=== PATIENT | female | born 1985 | race Caucasian/White ===

== ENCOUNTER → 2016-12-29 | Outpatient (CLI) | payer OTHER ==
[2016-12-29 08:52] LABS: CH 29.2; HCT 39.3 % (34.0-46.0); HDW 2.17; HGB 13.2 gm/dL (11.4-16.0); MCH 29.8 pg (25.0-35.0); MCHC 33.5 g/dL (31.0-37.0); MCV 88.8 fL (80.0-100.0); Mean Platelet Volume 6.7; RBC 4.42 m/uL (3.80-5.40); RDW 12.6 % (11.5-15.5); WBC 7.4 k/uL (3.8-10.6)
[2016-12-29 09:16] LABS: Glucose 89 mg/dL (74-99); Non-African American GFR(MDRD) >60 (>60 ml/min/1.73 sqM)
[2016-12-29 09:40] LABS: Hepatitis B Surface Ag Index 0.05
[2016-12-29 15:50] LABS: Treponemal Ab Non-Reactive (Non-Reactive)
== END | disposition home or self-care (01) ==
LOC: LABWHC1 08:17
PROVIDERS: ATTEND Obstetrics & Gynecology
DX: Z34.81 Encounter for supervision of other normal pregnancy, first trimester (principal); R53.83 Other fatigue
CPT/HCPCS: 36415; 82565; 82947; 85027; 86762; 86780; 86850; 86900; 86901; 87340; 87390

== ENCOUNTER 2017-01-23 05:56 | Day surgery (SDC) | payer OTHER ==
[2017-01-22 14:32] VITALS: BMI 33.7
--- NOTE | 2017-01-22 17:46 | P.HPOB ---
History of Present Illness H&P Date: 01/22/17 Chief Complaint: Missed . This patient is a pleasant 31-year-old 2 para 1 female estimated gestational age approximately 8 weeks who presented for a routine visit was found to have no cardiac activity. Patient had a previous ultrasound done at 7 weeks which showed a viable . Ultrasound done today demonstrated a 8 week intrauterine with no cardiac activity consistent with a missed . I did discuss options with the patient including expectant management versus D&C. Patient is requesting D&C at this time. Review of Systems Constitutional: Denies chills, Denies fever Ears, nose, mouth and throat: Denies headache, Denies sore throat Cardiovascular: Denies chest pain, Denies shortness of breath Respiratory: Denies cough Genitourinary: Reports as per HPI, Reports Menstruation: Reports amenorrhea Past Medical History Past Medical History: No Reported History, Osteoarthritis (OA) History of Any Multi-Drug Resistant Organisms: None Reported Additional Past Surgical History / Comment(s): Patient has a history of wrist surgery with a ganglion cyst removed. Past Anesthesia/Blood Transfusion Reactions: No Reported Reaction Past Psychological History: No Psychological Hx Reported Smoking Status: Never smoker Past Alcohol Use History: None Reported Past Drug Use History: None Reported - Past Family History Sister(s) Family Medical History: Cancer Additional Family Medical History / Comment(s): melanoma Father Family Medical History: Diabetes Mellitus Medications and Allergies Home Medications Medication Instructions Recorded Confirmed Type Bnj-Sflh-Uxzfo Acid 1 tab PO DAILY 10/15/13 01/22/17 History [-U Capsule (formulary)] Allergies Allergy/AdvReac Type Severity Reaction Status Date / Time No Known Allergies Allergy Verified 01/22/17 14:25 Exam - Vital Signs Vital signs: Intake and Output 01/22/17 01/22/17 01/22/17 06:59 14:59 22:59 Other: Weight 103.873 kg Patient Weight 01/23/17 06:59 Weight 103.873 kg - OBG Physical Exam Abdomen: bowel sounds normal, no diffuse tenderness, no bruit present, no guarding noted, no hepatomegaly, no splenomegaly, no mass Vulva: both: normal Vagina: normal moisture Uterus: enlarged (8 weeks size.) Results Ultrasound in my office today shows a approximately 8 week intrauterine with no cardiac activity. There has been little change from her previous ultrasound 4 weeks ago. Assessment and Plan (1) Missed Narrative/Plan: This is a pleasant 31-year-old 2 para 1 female 8 weeks gestation with missed . Patient is requesting suction D&C at this time. Patient and I and her have discussed the surgery and risks including risks of infection, bleeding, possible uterine perforation. All the patient's questions are answered and a written consent is obtained. Status: Acute
[~2017-01-23 05:56] MED LIST: DEXAMETHASONE SOD PHOSPHATE 10 MG/ML 1 ML VIAL IV ONE; HYDROmorphone 1 MG/ML 1 ML SYRINGE IVP PRN; LACTATED RINGERS 1,000 ML IV SCH; LIDOCAINE 1% 20 ML VIAL (10MG/ML) FOR IV START INTRADERMA PRN; ONDANSETRON 4 MG/2 ML VIAL IVP ONE; Pre Op ABX Message 1 EACH MISC MISCELLANE ONE; SCOPOLAMINE 1.5MG/72HR PATCH TRANSDERM ONE
[2017-01-23] MEDS ORDERED: LACTATED RINGERS 1,000 ML IV ONE (06:14)
[2017-01-23] MEDS ORDERED: MIDAZOLAM 2 MG/2 ML VIAL ONE (06:52)
[2017-01-23] MEDS ORDERED: fentaNYL (PF) 50 MCG/ML 2 ML AMP ONE (06:52)
[2017-01-23] MEDS ORDERED: LIDOCAINE 1% INJ 10MG/ML (20 ML MDV) ONE (06:52)
[2017-01-23] MEDS ORDERED: PROPOFOL 10 MG/ML 20 ML VIAL IV ONE (06:52)
[2017-01-23] MEDS ORDERED: KETOROLAC 30 MG/ML 1 ML VIAL ONE (06:52)
[2017-01-23 07:20] VITALS: TEMP 98.2
[2017-01-23 08:09] VITALS: RESP 20
[2017-01-23 09:14] VITALS: BP 111/66; PULSE 76
--- NOTE | 2017-01-23 10:36 | P.OP ---
Date of Procedure: 01/23/17 Preoperative Diagnosis: Missed 8 weeks. Postoperative Diagnosis: Same Procedure(s) Performed: Suction D&C Implants: Anesthesia: MAC Surgeon: López Horvath Estimated Blood Loss (ml): 400 Urine output (ml): 10 Pathology: other (Uterine contents) Condition: stable Disposition: PACU Indications for Procedure: Please see dictated H&P for intimate details of this patient's admission. Brief summary this is a pleasant 31-year-old 2 para 1 female estimated gestational age 12 weeks by dates 8 weeks by ultrasound who had a previous viable ultrasound at approximately 7 weeks however presented to my office yesterday for routine OB visit was found to have no cardiac activity consistent with a missed . Patient and I discussed options for treatment including expectant management versus D&C she requested D&C at this time. We discussed the surgery and risks including risks of infection, bleeding , possible uterine perforation. All the patient's questions are answered and a written consent is obtained. Operative Findings: Uterine contents were consistent with products of conception. Description of Procedure: This patient is taken to the operating room where she is laid in the supine position. She subsequent undergoes general mask anesthesia without incident. With an adequate level of anesthesia she's placed in the dorsal lithotomy position. She has a vaginal perineal prep and drape. Examination under anesthesia shows a mid position uterus. I drain her bladder for 10 mL of clear urine at this time. I then place a weighted speculum posterior vagina. The anterior lip of the cervix is grasped and the cervix is gently dilated to allow a 8 curved suction curette easily and the uterine cavity. Suction is applied and a large amount of tissue is removed. Multiple passes are made until no further tissue was noted. She does have some brisk bleeding but this appears to subside after the tissue is removed. I then take a curette and gently curettaged all 4 quadrants to ensure no further tissue and it is noted. A final pass of the suction curet is done and good hemostasis is noted at this time. At this point the procedure is terminated. The Allis clamp and weighted speculum was removed. Patient is awakened from anesthesia. All counts are correct 3. There are no complications.
== END 2017-01-23 10:10 | disposition home or self-care (01) ==
LOC: OR 05:56
PROVIDERS: ATTEND Obstetrics & Gynecology
DX: O02.1 Missed abortion (principal)
CPT/HCPCS: 88305; 59820; J2250; J1100; J2405; J2001; J3010; J1885; J1170; J2704

== ENCOUNTER 2018-07-28 17:01 | Emergency (ER) | payer OTHER ==
[2018-07-28 17:14] VITALS: BP 132/72; TEMP 97.8
[2018-07-28] MEDS ORDERED: SODIUM CHLORIDE 0.9% 500 ML 500 ML IV ONE (17:54)
[2018-07-28] MEDS ORDERED: IPRATROPIUM-ALBUTEROL 3 ML NEB INHALATION STA (17:55)
--- NOTE | 2018-07-28 18:28 | ED ---
URI HPI - General Chief Complaint: Upper Respiratory Infection Stated Complaint: Congestion/28 wks Time Seen by Provider: 07/28/18 17:45 Source: patient Mode of arrival: ambulatory Limitations: no limitations - History of Present Illness Initial Comments: 32-year-old female denies past medical history presents today for chief complaint of cough congestion. Patient states that she has had a cough for the past 2 weeks. She states she was given a Z-Geoff by her TOP CUTTER. She states she' s been coughing so hard she feels short of breath. Patient denies any chest pain. Patient states her chest feels tight as though she has bronchitis, she states identical to when she had bronchitis or pneumonia in the past. Patient denies any shortness of breath and cough. Patient states she has no abdominal pain or vaginal bleeding. Patient states she would like something for the cough. She states she can no longer take it has been trying honey and home remedies without any relief. Patient states she has been using her Ventolin inhaler as recommended by her TOP CUTTER. Patient states she does have a distant history of asthma. Remaining review of systems negative, patient denies any recent fever, chills, chest pain, Exertion, back pain, abdominal pain, nausea or vomiting, numbness or tingling, dysuria or hematuria, constipation or diarrhea, or visual changes, or any other complaints. On arrival patient appears well no signs of acute distress. Vital signs within normal limits. - Related Data Home Medications Medication Instructions Recorded Confirmed Owo-Qnsu-Njncv Acid 1 tab PO DAILY 10/15/13 01/22/17 [-U Capsule (formulary)] Previous Rx's Medication Instructions Recorded Acetaminophen-Codeine 300-30mg 1 - 2 tab PO Q4H PRN #30 tablet 01/22/17 [Tylenol #3] Ibuprofen [Motrin] 600 mg PO Q6HR PRN #40 tab 01/22/17 Dextromethorphan Polistirex 60 ml PO Q12H 5 Days #1 bottle 07/28/18 [Delsym] Allergies Allergy/AdvReac Type Severity Reaction Status Date / Time No Known Allergies Allergy Verified 07/28/18 17:10 Review of Systems ROS Statement: Those systems with pertinent positive or pertinent negative responses have been documented in the HPI. ROS Other: All systems not noted in ROS Statement are negative. Past Medical History Past Medical History: Asthma History of Any Multi-Drug Resistant Organisms: None Reported Past Surgical History: Orthopedic Surgery Additional Past Surgical History / Comment(s): L wrist, D&C Past Anesthesia/Blood Transfusion Reactions: No Reported Reaction Past Psychological History: No Psychological Hx Reported Smoking Status: Never smoker Past Alcohol Use History: None Reported Past Drug Use History: None Reported - Past Family History Sister(s) Family Medical History: Cancer Additional Family Medical History / Comment(s): melanoma Father Family Medical History: Diabetes Mellitus General Exam - General Exam Comments Initial Comments: General: The patient is awake and alert, in no distress, and does not appear acutely ill. Eye: Pupils are equal, round and reactive to light, extra-ocular movements are intact. No nystagmus. There is normal conjunctiva bilaterally. No signs of icterus. Ears, nose, mouth and throat: There are moist mucous membranes and no oral lesions. Nasally voice. Oropharynx not erythematous with tonsillar enlargement or exudates or lesion. Neck: The neck is supple, there is no tenderness or JVD. Cardiovascular: There is a regular rate and rhythm. No murmur, rub or gallop is appreciated. Respiratory: Lungs are clear to auscultation, respirations are non-labored, breath sounds are equal. No wheezes, stridor, rales, or rhonchi. No retractions or abdominal breathing. Obvious nasal congestion. Gastrointestinal: Abdomen consistent with 28 wks of non-tender abdomen without masses or organomegaly noted. There is no rebound or guarding present. Musculoskeletal: Normal ROM, no tenderness. Strength 5/5. Sensation intact. Pulses equal bilaterally 2+. Neurological: A&O x 3. CN II-XII intact, There are no obvious motor or sensory deficits. Coordination appears grossly intact. Speech is normal. Skin: Skin is warm and dry and no rashes or lesions are noted. No LE Edema. no pain to palpation of deep venous system. (-) Andrae. Psychiatric: Cooperative, appropriate mood & affect, normal judgment. Limitations: no limitations Course Vital Signs 07/28/18 07/28/18 07/28/18 17:10 18:20 18:30 Temperature 97.8 F Pulse Rate 86 89 84 Respiratory 18 20 20 Rate Blood Pressure 132/72 O2 Sat by Pulse 100 Oximetry 07/28/18 18:35 Temperature Pulse Rate Respiratory 22 Rate Blood Pressure O2 Sat by Pulse Oximetry Medical Decision Making - Medical Decision Making Laboratory studies unremarkable. Patient requested chest x-ray did discuss the risks of radiation. Patient shielded. No evidence of pneumonia. No other abnormal findings. Patient has clear lungs on auscultation. There is significant nasal congestion. Patient has no retractions abdominal breathing. I did repeat nursing patient notes however there is no use of accessory muscles. Patient is breathing through mouth due to nasal congestion. Patient requesting medication for cough. Patient states is identical to when she's had bronchitis in the past. Patient denies any chest pain. Patient given prescription for Desym. She given strict return parameters for worsening symptoms, and close follow-up with primary [facility] as well as TOP CUTTER. I did discuss the case/history as well as pt PE findings, laboratory studies and VS with attending provider Dr. Rolon who at this time agrees patient appears to have viral bronchitis. Will treat symptomatically. Patient aware of all return parameters denied questions. She discharged appearing well no signs of distress - Lab Data Result diagrams: 07/28/18 18:10 07/28/18 18:10 Lab Results 07/28/18 07/28/18 Range/Units 18:10 18:10 WBC 12.2 H (3.8-10.6) k/uL RBC 4.21 (3.80-5.40) m/uL Hgb 12.4 (11.4-16.0) gm/dL Hct 36.6 (34.0-46.0) % MCV 86.9 (80.0-100.0) fL MCH 29.5 (25.0-35.0) pg MCHC 33.9 (31.0-37.0) g/dL RDW 13.5 (11.5-15.5) % Plt Count 275 (150-450) k/uL Neutrophils % 74 % Lymphocytes % 17 % Monocytes % 5 % Eosinophils % 2 % Basophils % 0 % Neutrophils # 9.0 H (1.3-7.7) k/uL Lymphocytes # 2.1 (1.0-4.8) k/uL Monocytes # 0.6 (0-1.0) k/uL Eosinophils # 0.2 (0-0.7) k/uL Basophils # 0.0 (0-0.2) k/uL Sodium 138 (137-145) mmol/L Potassium 4.0 (3.5-5.1) mmol/L Chloride 106 (98-107) mmol/L Carbon Dioxide 22 (22-30) mmol/L Anion Gap 10 mmol/L BUN 10 (7-17) mg/dL Creatinine 0.48 L (0.52-1.04) mg/dL Est GFR (CKD-EPI)AfAm >90 (>60 ml/min/1.73 sqM) Est GFR (CKD-EPI)NonAf >90 (>60 ml/min/1.73 sqM) Glucose 85 (74-99) mg/dL Calcium 9.6 (8.4-10.2) mg/dL Total Bilirubin 0.3 (0.2-1.3) mg/dL AST 17 (14-36) U/L ALT 45 (9-52) U/L Alkaline Phosphatase 89 (38-126) U/L Total Protein 6.4 (6.3-8.2) g/dL Albumin 3.7 (3.5-5.0) g/dL Disposition Clinical Impression: Acute viral bronchitis Disposition: HOME SELF-CARE Condition: Good Instructions (If sedation given, give patient instructions): Upper Respiratory Infection (ED) Additional Instructions: Please use medication as discussed. Please follow-up with family doctor in the next 2 days. Please return to emergency room if the symptoms increase or worsen or for any other concerns. Prescriptions: Dextromethorphan Polistirex [Delsym] 60 ml PO Q12H 5 Days #1 bottle Is patient prescribed a controlled substance at d/c from ED?: No Referrals: Federico Ulloa MD [Primary Care Provider] - 1-2 days Time of Disposition: 19:06
[2018-07-28 18:36] VITALS: RESP 22
[2018-07-28 18:42] LABS: Basophils % (A) 0 %; Eosinophils # (A) 0.2 k/uL (0-0.7); Eosinophils % (A) 2 %; HCT 36.6 % (34.0-46.0); HGB 12.4 gm/dL (11.4-16.0); Lymphocytes # (A) 2.1 k/uL (1.0-4.8); Lymphocytes % (A) 17 %; MCH 29.5 pg (25.0-35.0); MCHC 33.9 g/dL (31.0-37.0); MCV 86.9 fL (80.0-100.0); Monocytes # (A) 0.6 k/uL (0-1.0); Monocytes % (A) 5 %; Neutrophils % (A) 74 %; Platelet Count 275 k/uL (150-450); RBC 4.21 m/uL (3.80-5.40); RDW 13.5 % (11.5-15.5); WBC 12.2 k/uL (3.8-10.6)
[2018-07-28 18:48] VITALS: PULSE 84
[2018-07-28 18:52] LABS: ALT 45 U/L (9-52); AST 17 U/L (14-36); Albumin 3.7 g/dL (3.5-5.0); Alkaline Phosphatase 89 U/L (38-126); Anion Gap 10 mmol/L; Blood Urea Nitrogen 10 mg/dL (7-17); Calcium 9.6 mg/dL (8.4-10.2); Carbon Dioxide 22 mmol/L (22-30); Chloride 106 mmol/L (98-107); Glucose 85 mg/dL (74-99); Sodium 138 mmol/L (137-145); Total Bilirubin 0.3 mg/dL (0.2-1.3); Total Protein 6.4 g/dL (6.3-8.2)
--- NOTE | 2018-07-28 18:53 | XR ---
EXAMINATION TYPE: XR chest 2V DATE OF EXAM: 07/28/2018 COMPARISON: NONE HISTORY: Congestion short of breath TECHNIQUE: Frontal and lateral views of the chest are obtained. FINDINGS: Heart and mediastinum are normal. Lungs are clear. Diaphragm is normal. Bony thorax appear s normal. IMPRESSION: Normal chest
== END 2018-07-28 19:47 | disposition home or self-care (01) ==
LOC: EC 17:01
DX: O99.513 Diseases of the respiratory system complicating pregnancy, third trimester (principal); J20.8 Acute bronchitis due to other specified organisms; Z3A.28 28 weeks gestation of pregnancy
CPT/HCPCS: 36415; 71046; 80053; 85025; 94640; 96360; 99284

== ENCOUNTER 2018-09-10 13:52 | Outpatient (CLI) | payer OTHER ==
[2018-09-10 14:23] VITALS: BP 128/72; PULSE 89; RESP 16; TEMP 98.2
--- NOTE | 2018-09-10 16:10 | US ---
EXAMINATION TYPE: US OB BPP wo non-stress DATE OF EXAM: 09/10/2018 COMPARISON: NONE CLINICAL HISTORY: decreased movement. EXAM PERFORMED: Transabdominal (TA) BPP PARAMETERS: PRESENTATION: Vertex LIE: Longitudinal?? HEART RATE: 145 bpm RHYTHM: Normal LUÍS: 14.2cm DIAPHRAGM IMAGED: yes BPP SCORIN. Breathin (1 episode of breathing of 30 second duration in 30 minutes of scanning time) 2. Movement: 2 (at least 3 discrete body movements in 30 minutes) 3. Tone: 2 (1 episode of active flexion/extension of limb) 4. LUÍS: 2 (LUÍS index > 5cm) IMPRESSION: BIOPHYSICAL PROFILE TOTAL SCORE: 8 / 8
--- NOTE | 2018-09-10 18:42 | P.MSEPDOC ---
Presenting Problems - Arrival Data Date of Arrival on Unit: 09/10/18 Time of Arrival on Unit: 13:56 Mode of Transport: Portable - Complaint OB-Reason for Admission/Chief Complaint: Decreased Movement Comment: pt arrived c/o decreased movement today Medical History - Information : 3 Para: 1 Term: 1 : 0 Abortions: Spontaneous or Elective: 1 Number of Living Children: 1 - Gestational Age Gestational Age by MATILDE (wks/days): 34 Weeks and 3 Days Review of Systems - Review of Systems Constitutional: No problems Breast: No problems ENT: No problems Cardiovascular: No problems Respiratory: No problems Gastrointestinal: No problems Genitourinary: No problems Musculoskeletal: No problems Neurological: No problems Skin: No problems Vital Signs - Temperature Temperature: 98.2 F Temperature Source: Temporal Artery Scan - Pulse Right Brachial Pulse Rate: 89 Pulse Assessment Method: Automatic Cuff - Respirations Respiratory Rate: 16 Oxygen Delivery Method: Room Air - Blood Pressure Right Arm Blood Pressure: 128/72 Blood Pressure Mean: 90 Blood Pressure Source: Automatic Cuff Medical Screen Scoring (Post) - Cervical Exam Dilation: Exam Deferred Effacement: Exam Deferred Membranes: Intact - Uterine Contractions Frequency: N/A Duration: N/A Intensity: N/A - Maternal Vital Signs Maternal Temperature: N/A Maternal Blood Pressure: N/A Signs of Preeclampsia: N/A Maternal Respirations: N/A - Pain Assessment Pain Location and Character: Generalized Pain Scale Used: Numeric (1 - 10) Pain Intensity: 0 Pain Management Goal: 0 Pain Behavior: None Exhibited, Vocalization - Maternal Trauma Maternal Trauma: N/A - Assessment Heart Rate: 125 Heart Rate - NICHD Category: Category I (Normal) = 0 NST: Reactive Position: N/A Station: N/A - Total Score Total Score (Post): 0 - Post Treatment Level of Risk Post Treatment Level of Risk: Low (0-5) Physician Notification (Post) - Physician Notified Physician Notified Date: 09/10/18 Physician Notified Time: 16:08 Physician/Practitioner Notified:: Dr. Horvath Spoke With: Dr. Horvath New Order Received: Yes (Discharge home with follow up instructions.) Disposition - Disposition OB Disposition: Discharge to home Discharge Date: 09/10/18 Discharge Time: 16:08 I agree with the RN Medical Screening Exam: Yes Risk & Benefit of care provided described in d/c instruction: Yes Diagnosis: DECREASED MOVEMENTS, THIRD TRIMESTER, FETUS 1 (Anesthesia is category 1 and biophysical profile is 8 out of 8. There is no evidence of compromise and therefore patient be discharged home follow up with movement counts and to return if any concerns.)
== END 2018-09-10 16:08 | disposition home or self-care (01) ==
LOC: FBPOP 13:52
PROVIDERS: ATTEND Obstetrics & Gynecology
DX: O36.8130 Decreased fetal movements, third trimester, not applicable or unspecified (principal); Z3A.34 34 weeks gestation of pregnancy
CPT/HCPCS: 59025; 76819; 99213

== ENCOUNTER 2018-10-12 04:01 | Inpatient (IN) | payer OTHER ==
[2018-10-12] MEDS: LACTATED RINGERS 1,000 ML IV SCH ×2 (04:45→08:53)
[2018-10-12] MEDS ORDERED: LIDOCAINE 0.5% (PF) 5 MG/ML (50 ML SDV) SQ PRN (04:52)
[2018-10-12] MEDS ORDERED: CARBOPROST TROMETHAMINE 250 MCG/ML 1 ML AMP IM PRN (04:52)
[2018-10-12] MEDS ORDERED: AMPICILLIN 2,000 MG in SODIUM CHLORIDE 0.9% 100 ML IVPB STA (04:52)
[2018-10-12] MEDS ORDERED: TERBUTALINE 1 MG/ML VIAL SQ PRN (04:52)
[2018-10-12] MEDS ORDERED: METHYLERGONOVINE 0.2 MG/ML 1 ML AMP IM PRN (04:52)
[2018-10-12] MEDS ORDERED: OXYTOCIN 10 UNIT/ML 1 ML VIAL IM PRN (04:52)
[2018-10-12] MEDS ORDERED: BUTORPHANOL 1 MG/ML 1 ML VIAL IV PRN (04:54)
[2018-10-12] MEDS ORDERED: OXYTOCIN 30 UNITS/500 ML NS 30 UNIT in SALINE 1 500ML.BAG IV SCH (05:00)
[2018-10-12 05:04] VITALS: BMI 37.6
[2018-10-12 05:52] LABS: Basophils % (A) 0 %; Eosinophils # (A) 0.2 k/uL (0-0.7); Eosinophils % (A) 2 %; HCT 35.6 % (34.0-46.0); HGB 11.9 gm/dL (11.4-16.0); Lymphocytes # (A) 1.3 k/uL (1.0-4.8); Lymphocytes % (A) 15 %; MCH 29.1 pg (25.0-35.0); MCHC 33.4 g/dL (31.0-37.0); MCV 87.1 fL (80.0-100.0); Mean Platelet Volume 7.3; Monocytes # (A) 0.5 k/uL (0-1.0); Monocytes % (A) 6 %; Neutrophils # (A) 6.8 k/uL (1.3-7.7); Neutrophils % (A) 76 %; Platelet Count 216 k/uL (150-450); RBC 4.09 m/uL (3.80-5.40); RDW 13.9 % (11.5-15.5); WBC 8.9 k/uL (3.8-10.6)
[2018-10-12] MEDS ORDERED: SODIUM CHLORIDE 0.9% 100 ML BAG ONE (08:55)
[2018-10-12] MEDS ORDERED: ROPIVACAINE 5MG/ML 20ML VIAL ONE (08:55)
[2018-10-12] MEDS ORDERED: fentaNYL (PF) 50 MCG/ML 5 ML AMP ONE (08:55)
[2018-10-12] MEDS ORDERED: AMPICILLIN 1,000 MG in SODIUM CHLORIDE 0.9% 50 ML IVPB SCH (10:00)
[2018-10-12] MEDS ORDERED: ROPIVACAINE 100 MG, fentaNYL (PF) 200 MCG in SODIUM CHLORIDE 0.9% 76 ML EPIDURAL ONE (11:41)
[2018-10-12] MEDS: OXYTOCIN 20 UNITS/1000 ML NS 1,000 ML IV SCH ×2 (12:36→15:15)
[2018-10-12] MEDS ORDERED: diphenhydrAMINE 50 MG/ML 1 ML VIAL IVP PRN ×2 (12:57)
[2018-10-12] MEDS ORDERED: WITCH HAZEL 1 EACH MED..PAD TOPICAL PRN (12:57)
[2018-10-12] MEDS ORDERED: ZOLPIDEM 5 MG TAB PO PRN (12:57)
[2018-10-12] MEDS ORDERED: SIMETHICONE 80 MG CHEWABLE PO PRN (12:57)
[2018-10-12] MEDS ORDERED: diphenhydrAMINE 25 MG CAP PO PRN (12:57)
[2018-10-12] MEDS ORDERED: HYDROCORTISONE 2.5% RECTAL CREAM 30 GM TUBE RECTAL PRN (12:57)
[2018-10-12] MEDS ORDERED: diphenhydrAMINE 50 MG CAP PO PRN (12:57)
[2018-10-12] MEDS ORDERED: LANOLIN CREAM 5 GM TUBE TOPICAL PRN (12:57)
[2018-10-12] MEDS ORDERED: BENZOCAINE/MENTHOL SPRAY 1 GM/SPRAY AEROSOL TOPICAL PRN (12:57)
--- NOTE | 2018-10-12 13:01 | P.HPOB ---
History of Present Illness H&P Date: 10/12/18 Chief Complaint: spontaneous rupture of membranes 33-year-old presented at 39 weeks gestation with spontaneous rupture of membranes at 230am. She presented to the hospital soon thereafter and was 2 cm dilated, 50% effaced, and -3 station. She was bhumi irregularly. heart tones 130 with moderate variability, category 1 tracing. Review of Systems All systems: negative Constitutional: Denies chills, Denies fever Eyes: denies blurred vision, denies pain Ears, nose, mouth and throat: Denies headache, Denies sore throat Cardiovascular: Denies chest pain, Denies shortness of breath Respiratory: Denies cough Gastrointestinal: Denies abdominal pain, Denies diarrhea, Denies nausea, Denies vomiting Genitourinary: Denies dysuria, Denies hematuria Musculoskeletal: Denies myalgias Integumentary: Denies pruritus, Denies rash Neurological: Denies numbness, Denies weakness Psychiatric: Denies anxiety, Denies depression Endocrine: Denies fatigue, Denies weight change Past Medical History Past Medical History: Asthma Additional Past Medical History / Comment(s): OB history: She's had one spot days , 1 vaginal delivery. This is her third . She had care with Dr. Horvath since the first trimester. Blood type is O+, and is negative, rubella immune, hepatitis B-, HIV nonreactive, RPR nonreactive, GBS positive. History of Any Multi-Drug Resistant Organisms: None Reported Past Surgical History: Orthopedic Surgery Additional Past Surgical History / Comment(s): L wrist, D&C Past Anesthesia/Blood Transfusion Reactions: No Reported Reaction Past Psychological History: No Psychological Hx Reported Smoking Status: Never smoker Past Alcohol Use History: None Reported Past Drug Use History: None Reported - Past Family History Sister(s) Family Medical History: Cancer Additional Family Medical History / Comment(s): melanoma Father Family Medical History: Diabetes Mellitus Medications and Allergies Home Medications Medication Instructions Recorded Confirmed Type Pnv,Calcium 72/Iron/Folic Acid 1 tab PO DAILY 09/10/18 10/12/18 History [ Plus Tablet] Allergies Allergy/AdvReac Type Severity Reaction Status Date / Time No Known Allergies Allergy Verified 10/12/18 04:51 Exam Osteopathic Statement: *. No significant issues noted on an osteopathic structural exam other than those noted in the History and Physical/Consult. Vital Signs Temp Pulse Resp BP Pulse Ox 10/12/18 04:50 97.7 F 92 16 133/84 100 10/12/18 04:21 97.7 F 92 16 133/84 Intake and Output 10/11/18 10/12/18 10/12/18 22:59 06:59 14:59 Other: # Voids 1 Weight 115.666 kg Heart: Regular rate and rhythm Lungs: Clear to auscultation bilaterally Abdomen: Soft, nontender Extremities: Negative Homans sign Results Result Diagrams: 10/12/18 05:28 Assessment and Plan (1) Normal labor Current Visit: Yes Status: Acute Code(s): O80 - ENCOUNTER FOR FULL-TERM U NCOMPLICATED DELIVERY; Z37.9 - OUTCOME OF DELIVERY, UNSPECIFIED SNOMED Code(s): 19160214 Plan: 1. Admit to family place 2. Expectant management 3. Anticipate normal vaginal delivery
--- NOTE | 2018-10-12 13:03 | P.PROBDLV ---
Vaginal Delivery Note - . Vaginal Delivery Note: 33-year-old presented at 39 weeks gestation with spontaneous rupture of membranes at 230am. She presented to the hospital soon thereafter and was 2 cm dilated, 50% effaced, and -3 station. She was bhumi irregularly. heart tones 130 with moderate variability, category 1 tracing. She was admitted to [facility] on ampicillin was started for GBS prophylaxis. A few hours later she was still 3 cm dilated, 70% effaced, and -2 station and con tracting irregularly. Pitocin augmentation was started and patient was given an epidural. Her cervix was completely dilated at 12:33 PM. She pushed, delivered a viable female over intact perineum under epidural anesthesia at 12:35 PM. Head delivered OA, nuchal cord 1 easily reduced, anterior shoulder delivered gentle downward guidance followed by posterior shoulder and rest of body. Nose and mouth bulb suctioned. Cord clamped and cut. placed on mother's abdomen. Apgars 9, 9, weight 7 lbs. 11 oz. Placenta delivered spontaneously, intact with three-vessel cord at 12:39 PM. Vagina, cervix, perineum inspected. Bilateral labial lacerations were repaired with 3-0 Vicryl. Estimated blood loss 200 mL.
[2018-10-12] MEDS: IBUPROFEN 600 MG TAB PO PRN ×2 (14:26→20:32)
[2018-10-12] MEDS: ACETAMINOPHEN TAB 325 MG TAB PO PRN (16:18)
[2018-10-12] MEDS: SENNOSIDES-DOCUSATE SODIUM 1 EACH TAB PO SCH (20:50)
[2018-10-13] MEDS: IBUPROFEN 600 MG TAB PO PRN ×3 (04:52→21:14)
[2018-10-13] MEDS: SENNOSIDES-DOCUSATE SODIUM 1 EACH TAB PO SCH ×2 (08:12→21:14)
--- NOTE | 2018-10-13 09:54 | P.PNOBGVD ---
Subjective - Subjective Principal diagnosis: S/P NVD PPD #1 Interval history: Patient seen and examined. Denies N/V, F/ C, CP, SOB, calf pain. Patient reports: Reports appetite normal, Reports voiding normally, Reports pain well controlled, Reports ambulating normally Cope: doing well Objective - Latest Vital Signs Latest vital signs: Vital Signs Temp Pulse Resp BP 10/13/18 08:00 98.4 F 87 18 115/62 10/13/18 00:00 98.4 F 90 16 10/12/18 20:00 98.1 F 94 14 102/57 10/12/18 16:15 97.6 F 100 18 112/86 10/12/18 15:10 98.6 F 98 18 115/57 10/12/18 14:45 110 H 115/61 10/12/18 14:15 97.7 F 96 18 116/67 10/12/18 13:45 97.9 F 83 18 103/53 10/12/18 13:30 83 117/59 10/12/18 13:15 97.7 F 89 18 111/56 10/12/18 13:00 99.2 F 90 18 122/59 10/12/18 12:45 98.2 F 105 H 18 133/65 Intake and Output 10/12/18 10/13/18 10/13/18 22:59 06:59 14:59 Other: # Voids 2 1 - Exam Lungs: bilateral: normal Chest: Normal S1, Normal S2 Extremities: Present: normal Abdomen: Present: normal appearance, soft Uterus: Present: normal, firm Assessment and Plan (1) Normal labor Current Visit: Yes Status: Resolved Code(s): O80 - ENCOUNTER FOR FULL-TERM UNCOMPLICATED DELIVERY; Z37.9 - OUTCOME OF DELIVERY, UNSPECIFIED SNOMED Code(s): 23195331 (2) Normal vaginal delivery Current Visit: Yes Status: Acute Code(s): O80 - ENCOUNTER FOR FULL-TERM UNCOMPLICATED DELIVERY SNOMED Code(s): 04987729 Plan: 1. Cont pp care
[2018-10-13] MEDS: ACETAMINOPHEN TAB 325 MG TAB PO PRN (13:17)
--- NOTE | 2018-10-14 06:13 | P.PNOBGVD ---
Subjective - Subjective Patient reports: Reports appetite normal, Reports voiding normally, Reports pain well controlled, Reports ambulating normally : doing well Objective - Latest Vital Signs Latest vital signs: Vital Signs Temp Pulse Resp BP 10/14/18 00:00 98.4 F 77 14 108/71 10/13/18 15:43 98.5 F 85 18 127/62 10/13/18 08:00 98.4 F 87 18 115/62 Intake and Output 10/13/18 10/13/18 10/14/18 14:59 22:59 06:59 Other: # Voids 1 1 2 - Exam Lungs: bilateral: normal Chest: Normal S1, Normal S2 Extremities: Present: normal Abdomen: Present: normal appearance, soft Uterus: Present: normal, firm Assessment and Plan Assessment: day #2. Patient is resting without complaints. Vital signs are stable she is afebrile. Uterus is firm nontender and she is having normal lochia. Impression is a normal course. Plan is to continue routine care discharge home later today. (1) Normal labor and delivery Current Visit: No Status: Acute Priority: High Code(s): O80 - ENCOUNTER FOR FULL-TERM UNCOMPLICATED DELIVERY SNOMED Code(s): 22108882
--- NOTE | 2018-10-14 06:17 | P.DS ---
Providers Date of admission: 10/12/18 04:18 Expected date of discharge: 10/14/18 Attending physician: López Horvath Primary care physician: Denise De La Cruz - Discharge Diagnosis(es) (1) Normal labor and delivery Current Visit: No Status: Acute Priority: High Hospital Course: Please see dictated H&P for intimate details of this patient's admission. Brief summary this is a pleasant 33-year-old 3 para 1 female 39 weeks gestation who is admitted to labor and delivery spontaneous rupture membranes in active labor. Patient was on have a vaginal delivery viable female infant. Please see dictated delivery note. day #2 patient's felt to be stable for discharge home follow up with me in 6 weeks. Procedures: Normal spontaneous vaginal delivery Patient Condition at Discharge: Good Plan - Discharge Summary New Discharge Prescriptions: New Ibuprofen [Motrin] 600 mg PO Q6HR PRN #40 tab PRN Reason: Mild Pain Or Fever >= 100.5 No Action Pnv,Calcium 72/Iron/Folic Acid [ Plus Tablet] 1 tab PO DAILY Discharge Medication List Pnv,Calcium 72/Iron/Folic Acid [ Plus Tablet] 1 tab PO DAILY 09/10/18 [History] Ibuprofen [Motrin] 600 mg PO Q6HR PRN #40 tab 10/14/18 [Rx] Follow up Appointment(s)/Referral(s): López Horvath MD [STAFF PHYSICIAN] - 6 Weeks Patient Instructions/Handouts: Vaginal Delivery (DC) Activity/Diet/Wound Care/Special Instructions: No intercourse or anything per vagina for 6 weeks. Please call if any fever, chills, excessive vaginal bleeding, and/or abdominal pain. Discharge Disposition: HOME SELF-CARE
[2018-10-14] MEDS: SENNOSIDES-DOCUSATE SODIUM 1 EACH TAB PO SCH (07:41)
[2018-10-14] MEDS: IBUPROFEN 600 MG TAB PO PRN (07:42)
[2018-10-14 08:30] VITALS: RESP 16
[2018-10-14] MEDS: ACETAMINOPHEN TAB 325 MG TAB PO PRN (12:13)
[2018-10-14 12:47] VITALS: BP 116/59; PULSE 83; TEMP 97.9
== END 2018-10-14 12:30 | disposition home or self-care (01) | DRG 807 ==
LOC: FBPOP 04:01 → 4FBP 04:18
PROVIDERS: ADMIT Obstetrics & Gynecology; ATTEND Obstetrics & Gynecology
PROC: 0HQ9XZZ Repair Perineum Skin, External Approach (ICD-10-PCS; principal; 2018-10-12)
PROC: 10E0XZZ Delivery of Products of Conception, External Approach (ICD-10-PCS; 2018-10-12)
DX: O70.0 First degree perineal laceration during delivery (principal); Z37.0 Single live birth; O99.824 Streptococcus B carrier state complicating childbirth; O69.81X0 Labor and delivery complicated by cord around neck, without compression, not applicable or unspecified; Z3A.39 39 weeks gestation of pregnancy; J45.909 Unspecified asthma, uncomplicated; O99.52 Diseases of the respiratory system complicating childbirth; Z80.8 Family history of malignant neoplasm of other organs or systems; Z83.3 Family history of diabetes mellitus
CPT/HCPCS: 59025; 84112; 85025; 86850; 86900; 86901; 99213

== ENCOUNTER 2021-08-19 10:45 | Day surgery (SDC) | payer OTHER ==
[2021-08-16 16:49] VITALS: BMI 33.2
[~2021-08-19 10:45] MED LIST changes: -DEXAMETHASONE SOD PHOSPHATE 10 MG/ML 1 ML VIAL IV ONE; +DEXAMETHASONE SOD PHOSPHATE 4 MG/ML 1 ML VIAL IV ONE; +HYDROmorphone 0.5 MG/0.5 ML SYRINGE IVP PRN; -HYDROmorphone 1 MG/ML 1 ML SYRINGE IVP PRN; +LIDOCAINE 1% (10MG/ML) FOR IV START INTRADERMA PRN; -LIDOCAINE 1% 20 ML VIAL (10MG/ML) FOR IV START INTRADERMA PRN; +MIDAZOLAM 2 MG/2 ML VIAL IV PRN; -Pre Op ABX Message 1 EACH MISC MISCELLANE ONE; -SCOPOLAMINE 1.5MG/72HR PATCH TRANSDERM ONE
[2021-08-19 11:08] VITALS: RESP 16
[2021-08-19] MEDS ORDERED: MIDAZOLAM 2 MG/2 ML VIAL IVP ONE (11:38)
[2021-08-19] MEDS ORDERED: fentaNYL (PF) 50 MCG/ML 2 ML AMP IVP ONE (11:40)
--- NOTE | 2021-08-19 12:00 | P.ANPRN ---
Procedure Note - Anesthesia - Nerve Block Performed Right Adductor Canal Single Time Out Performed: Yes (1138) Date of Procedure: 08/19/21 Procedure Start Time: 11:38 Procedure Stop Time: 11:43 Location of Patient: PreOp Indication: Acute Post-Operative Pain, Dx/Pain Location (Right ankle), Requested by Surgeon Specifically requested for management of pain by DrJerad: Marcos Gutierrez Sedation Type: Sedate with meaningful contact maintained Preparation: Sterile Prep Position: Supine Catheter: None Needle Types: Pajunk Needle Gauge: 21 Ultrasound used to visualize needle placement: Yes Ultrasound used to observe medication spread: Yes Injectate: Other (see comment) (15 and decadron 4 mg) Blood Aspirated: No Pain Paresthesia on Injection Noted: No Resistance on Injection: Normal Image Stored and Saved: Yes Events: Uneventful and Well Tolerated Right Popliteal Single Time Out Performed: Yes Date of Procedure: 08/19/21 Procedure Start Time: 11:44 Procedure Stop Time: 11:52 Location of Patient: PreOp Indication: Acute Post-Operative Pain, Analgesia, Dx/Pain Location (Right ankle) Sedation Type: Sedate with meaningful contact maintained Preparation: Sterile Prep Position: Left Lateral Catheter: None Needle Types: Pajunk Needle Gauge: 20 Ultrasound used to visualize needle placement: Yes Ultrasound used to observe medication spread: Yes Injectate: 0.5% Ropivacaine (see comment for volume) (15 cc and 4mg of decadron) Blood Aspirated: No Pain Paresthesia on Injection Noted: No Resistance on Injection: Normal Image Stored and Saved: Yes Events: Uneventful and Well Tolerated
[2021-08-19] MEDS ORDERED: DEXAMETHASONE SOD PHOSPHATE 4 MG/ML 1 ML VIAL ONE (13:18)
[2021-08-19] MEDS ORDERED: PROPOFOL 10 MG/ML 20 ML VIAL IV ONE (13:18)
[2021-08-19] MEDS ORDERED: LIDOCAINE 1% INJ 10MG/ML (20 ML MDV) ONE (13:18)
[2021-08-19] MEDS ORDERED: fentaNYL (PF) 50 MCG/ML 2 ML AMP ONE (13:18)
[2021-08-19] MEDS ORDERED: ROPIVACAINE 5 MG/ML 30 ML VIAL ONE (13:18)
[2021-08-19] MEDS ORDERED: MIDAZOLAM 2 MG/2 ML VIAL ONE (13:18)
[2021-08-19] MEDS ORDERED: ceFAZolin 1,000 MG in SODIUM CHLORIDE 0.9% 1,000 ML IRRIGATION ONE (13:42)
[2021-08-19 14:26] VITALS: TEMP 98
--- NOTE | 2021-08-19 14:34 | P.OP ---
Date of Procedure: 08/19/21 Preoperative Diagnosis: 1. Right ankle instability 2. Loose body right ankle Postoperative Diagnosis: 1. Same 2. Same Procedure(s) Performed: 1. Secondary repair right lateral ankle ligaments 2. Removal of loose body right ankle Implants: Arthrex internal brace, Arthrex fiber Laurent anchors 2 Anesthesia: GETA Surgeon: Marcos Gutierrez Estimated Blood Loss (ml): 1 Pathology: none sent Condition: stable Disposition: PACU Indications for Procedure: Continued pain after an inversion injury of the right ankle. MRI indicated complete rupture of the ATFL ligament as well as a loose body in the anterior lateral ankle gutter Operative Findings: Large loose body in the anterior lateral ankle joint Description of Procedure: Prior to the patient being brought to the operating room, anesthesia administer ed a nerve block on the affected extremity, utilizing ultrasonic guidance and mild sedation. Once completed the patient was taken to the operating room and placed on table supine position. Timeout was taken to confirm correct patient identifiers, correct procedure, and correct site of surgery. When all staff in the room were in agreement with the timeout, the patient was induced and placed under general anesthesia. A bump was placed underneath the hip to internally rotate the affected leg. A well-padded tourniquet was placed on the midcalf and then the affected extremity prepped and draped in usual manner. The leg was exsanguinated and the tourniquet inflated to 250 mmHg. Attention was directed over the lateral ankle where a curved incision was made just anterior to the lateral malleolus. The incision was deepened down to the subcutaneous tissue careful to identify, avoid, and retract any neurovascular structures and cauterize any bleeding vessels. Blunt dissection was continued down to level of the lateral ankle joint capsule and ligamentous structures. The soft tissue structures were sharply incised off the anterior surface the lateral malleolus and reflected anteriorly. A ronguer was used to remove the cortical bone off the anterior surface the lateral malleolus which would help facilitate tissue re- adhesion upon repair. With the ankle at 90 and in neutral inversion and eversion, the capsule was palpated on the lateral surface of the talus anterior to the articular surface. A small stab incision was made in the area of the talar body avoiding both the ankle and subtalar joints and near the junction of the neck. A drill hole was then placed utilizing a 3.4 mm drill bit into the talar body avoiding both the ankle and subtalar joints. The hole was then ta pped and then the 4.75 mm swivel lock anchor was inserted and impacted and then advanced to proper depth. The same drill bit was used to create the hole for the 3.5 mm anchor in the lateral malleolus. Drill holes for the Arthrex fiber Jean anchors were made one inferior and one superior to the 3.4 mm drill hole in the lateral malleolus. With the drill guides for the anchor still in place, the anchors were inserted into the lateral malleolus and impacted to proper depth. The separator inserter and guide were removed and then tension placed on the suture to lock anchors in place. Once both anchors were in place the wound was thoroughly irrigated with antibiotic saline. The suture on the fiber Laurent anchors was then used to capture the distal ligamentous and capsular structures on the talus and then with the ankle in maximum dorsiflexion and eversion, the suture was tied repairing the ligament. The 2 arms of the internal brace suture were then passed through the 3.5 mm anchor which was then aligned with the drill hole lateral malleolus. Utilizing described tensioning techniques, the anchor and suture were inserted into the drill hole and then the anchor advanced to lock the suture in place. At that time the ankle was tested for stability where anterior drawer and inversion stress were both negative. The wound was again irrigated with antibiotic saline. The fiber Laurent suture was used to sew the retinaculum over the lateral malleolus along with the periosteal flap in a pants over vest fashion. Subcu closure was done with 4-0 Monocryl and skin closure done with 3-0 Stratafix in a running subcuticular manner. Dermal glue was applied across the incision and allowed to dry. Steri-Strips are placed across incision. The incision was covered with an Arthrex jumpstart dressing and then a bulky dry dressing. The tourniquet was released and capillary refill return to all digits on the right foot. The patient was then placed a below-knee fracture boot holding the ankle neutral position. Anesthesia was reversed and the patient was taken recovery with vital signs stable.
[2021-08-19 15:35] VITALS: BP 96/67; PULSE 80
== END 2021-08-19 16:15 | disposition home or self-care (01) ==
LOC: OR 10:45
PROVIDERS: ATTEND Podiatrist
DX: M25.371 Other instability, right ankle (principal); M24.071 Loose body in right ankle; S93.491D Sprain of other ligament of right ankle, subsequent encounter; W17.89XD Other fall from one level to another, subsequent encounter; Z83.3 Family history of diabetes mellitus
CPT/HCPCS: 27698; 64447; 81025; 64445; 76942; C1713 ×2; J2250; J1100; J0690 ×2; J2405; J2001; J3010; J2795; J2704; J1170

== ENCOUNTER → 2022-06-20 | Outpatient (CLI) | payer OTHER ==
--- NOTE | 2022-06-21 08:31 | MM ---
Reason for Exam: Screening (asymptomatic). Baseline mammogram. Patient History: Menarche at age 13. First Full-Term at age 28. Premenopausal. Patient has history of breast feeding. Last menstrual period: 06/17/2022 Risk Values: Luciana 5 year model risk: 0.4%. NCI Lifetime model risk: 11.3%. Prior Study Comparison: Patient's first Mammogram. Tissue Density: The breast tissue is heterogeneously dense. This may lower the sensitivity of mammography. Findings: Analyzed By CAD. There is no suspicious group of microcalcifications in either breast. No suspicious masses in the right breast. Focal asymmetry demonstrated within the left breast at 3:00 posterior depth. Overall Assessment: Incomplete: need additional imaging evaluation, BI-RAD 0 Management: Diagnostic Mammogram of the left breast. A clinical breast exam by your physician is recommended on an annual basis and results should be correlated with mammographic findings. [facility] will attempt to contact patient to return for supplemental views and ultrasound if indicated. Electronically signed and approved by: Franky Ashton D.O.
== END | disposition home or self-care (01) ==
LOC: RADMAMWWP 07:05
PROVIDERS: ATTEND Obstetrics & Gynecology
DX: Z12.31 Encounter for screening mammogram for malignant neoplasm of breast (principal)
CPT/HCPCS: 77063; 77067

== ENCOUNTER → 2022-06-22 | Outpatient (CLI) | payer OTHER ==
--- NOTE | 2022-06-22 10:21 | MM ---
Reason for Exam: Additional evaluation requested from abnormal screening. Last screening mammogram was performed less than 1 month ago. Patient History: Menarche at age 13. First Full-Term at age 28. Premenopausal. Patient has history of breast feeding. Last menstrual period: 06/17/2022 Risk Values: Luciana 5 year model risk: 0.4%. NCI Lifetime model risk: 11.3%. Prior Study Comparison: 06/20/2022 Bilateral MG 3D screening mammo w/cad, [facility]. Tissue Density: Left: The breast tissue is heterogeneously dense. This may lower the sensitivity of mammography. Findings: Analyzed By CAD. Area of focal asymmetry 3-4 o'clock far posterior left breast persists on additional views. Area measures approximately 2 cm. On spot 3-D CC, it has the appearance of a prominent island of fibroglandular tissue. Further ultrasound evaluation recommended. Overall Assessment: Incomplete: need additional imaging evaluation, BI-RAD 0 Management: Diagnostic Breast Ultrasound of the left breast. 4:00 far posteriorly. Electronically signed and approved by: Yakelin Garcia M.D. Radiologist
--- NOTE | 2022-06-22 11:15 | USB ---
Reason for Exam: Additional evaluation requested from abnormal screening. Patient History: Menarche at age 13. First Full-Term at age 28. Premenopausal. Patient has history of breast feeding. Risk Values: Luciana 5 year model risk: 0.4%. NCI Lifetime model risk: 11.3%. Technique: Method: Targeted. Prior Study Comparison: 06/20/2022 Bilateral MG 3D screening mammo w/cad, [facility]. Findings: The axilla of the left breast and the retroareolar of the left breast were scanned. Targeted ultrasound lateral aspect left breast 3:00 to 5:00 including the subareolar region and axilla. At the 4:00 position, 10 cm from the nipple, there are are 2 adjacent cysts with aggregate dimension of 10 x 8 x 5 mm. No other solid or cystic lesion. Possible mammographic correlate. Six-month follow-up mammogram recommended. Overall Assessment: Probably benign, BI-RAD 3 Management: Diagnostic Mammogram of the left breast in 6 months. 1. Patient should continue monthly self breast exams. 2. A clinical breast exam by your physician is recommended on an annual basis. 3. This exam should not preclude additional follow-up of suspicious palpable abnormalities. Results were given to the patient verbally at the time of exam. Electronically signed and approved by: Yakelin Garcia M.D. Radiologist
== END | disposition home or self-care (01) ==
LOC: RADMAMWWP 09:27
PROVIDERS: ATTEND Obstetrics & Gynecology
DX: R92.8 Other abnormal and inconclusive findings on diagnostic imaging of breast (principal)
CPT/HCPCS: 77061; 77065

== ENCOUNTER 2022-10-09 23:12 | Emergency (ER) | payer OTHER ==
[2022-10-09 23:21] VITALS: RESP 16
[2022-10-09] MEDS ORDERED: GELATIN SPONGE,ABSORB (SMALL) 1 EACH SPONGE TOPICAL STA (23:36)
[2022-10-09] MEDS ORDERED: LIDOCAINE/EPINEPHR/TETRACAINE 5 ML BOTTLE TOPICAL ONE (23:36)
[2022-10-09] MEDS ORDERED: DIPH,PERTUS(ACELL)TETVAC-LF 0.5 ML VIAL IM ONE (23:36)
--- NOTE | 2022-10-09 23:39 | ED ---
Wound/Laceration HPI - General Chief Complaint: Wound/Laceration Stated Complaint: thumb laceration Time Seen by Provider: 10/09/22 23:23 Source: patient, RN notes reviewed Mode of arrival: ambulatory Limitations: no limitations - History of Present Illness Initial Comments: This is a 37-year-old female who presents to the emergency department for a lace ration to the right thumb. States that she was using a mandolin earlier today when she acquired the injury. She has been unable to get the bleeding to stop. She is not taking any blood thinners. Unsure when her last tetanus shot was. Denies any fevers, chills, sore throat, cough, dyspnea, chest pain, palpitations, abdominal pain, nausea, vomiting, diarrhea, back pain, or headaches. - Related Data Previous Rx's Medication Instructions Recorded HYDROcodone/APAP 5-325MG [Tyler 1 tab PO Q4HR PRN #30 tab 08/19/21 5-325] Allergies Allergy/AdvReac Type Severity Reaction Status Date / Time No Known Allergies Allergy Verified 08/16/21 16:37 Review of Systems ROS Statement: Those systems with pertinent positive or pertinent negative responses have been documented in the HPI. ROS Other: All systems not noted in ROS Statement are negative. Past Medical History Past Medical History: Asthma Additional Past Medical History / Comment(s): NO TREATMENT SINCE A TEEN. INJURED RT ANKLE 05/17/2021 History of Any Multi-Drug Resistant Organisms: None Reported Past Surgical History: Orthopedic Surgery Additional Past Surgical History / Comment(s): L wrist, D&C Past Anesthesia/Blood Transfusion Reactions: No Reported Reaction Past Psychological History: No Psychological Hx Reported Smoking Status: Never smoker Past Alcohol Use History: Occasional Past Drug Use History: None Reported - Past Family History Sister(s) Family Medical History: Cancer Additional Family Medical History / Comment(s): melanoma Father Family Medical History: Diabetes Mellitus General Exam Limitations: no limitations General appearance: alert, in no apparent distress Head exam: Present: atraumatic, normocephalic, normal inspection Respiratory exam: Present: normal lung sounds bilaterally. Absent: respiratory distress, wheezes, rales, rhonchi, stridor Cardiovascular Exam: Present: regular rate, normal rhythm, normal heart sounds. Absent: systolic murmur, diastolic murmur, rubs, gallop, clicks Neurological exam: Present: alert, oriented X3, CN II-XII intact Psychiatric exam: Present: normal affect, normal mood Skin exam: Present: other (Avulsion injury to the tip of the right thumb. Evidence of recent active bleeding. Bleeding controlled at this time.) Course Vital Signs 10/09/22 10/10/22 23:18 00:14 Temperature 97.9 F 98.1 F Pulse Rate 61 78 Respiratory 16 16 Rate Blood Pressure 117/66 132/76 O2 Sat by Pulse 100 98 Oximetry Medical Decision Making - Medical Decision Making This is a 37-year-old female who presents to the emergency department for a right thumb laceration. Was pt. sent in by a medical professional or institution? @ -No Did you speak to anyone other than the patient for history? @ -No Did you review nursing and triage notes? @ -Yes, and I agree, it is accurate with regards to the patient's symptoms. Were old charts reviewed? @ -No Differential Diagnosis? @ -Not applicable EKG interpreted by me (3pts min.)? @ -Not obtained X-rays interpreted by me (1pt min.)? @ -Not obtained CT interpreted by me (1pt min.)? @ -Not obtained U/S interpreted by me (1pt. min.)? @ -Not obtained What testing was considered but not performed? (CT, X-rays, U/S, labs)? Why? @ -None What meds were considered but not given? Why? @ -None Did you discuss the management of the patient with other professionals? @ -No Did you reconcile home meds? @ -No Was smoking cessation discussed for >3mins.? @ -No Was critical care preformed (if so, how long)? @ -No Were there social determinants of health that impacted care today? How? (Homelessness, low income, unemployed, alcoholism, drug addiction, transportation, low edu. Level, literacy, decrease access to med. care, longterm, rehab)? @ -No Was there de-escalation of care discussed even if they declined? (Discuss DNR or withdrawal of care, Hospice)? @ -No What co-morbidities impacted this encounter? (DM, HTN, Smoking, COPD, CAD, Cancer, CVA, Hep., AIDS, mental health diagnosis, sleep apnea, morbid obesity)? @ -None Was patient admitted / discharged? @ -Discharged. LET was applied to the thumb initially and the bleeding was controlled. Gelfoam was subsequently applied and the thumb was bandaged accordingly. Wound care instructions reviewed with the patient. Tetanus status updated. Advised ibuprofen and Tylenol as needed for discomfort. Undiagnosed new problem with uncertain prognosis? @ -None Drug Therapy requiring intensive monitoring for toxicity (Heparin, Nitro, Insulin, Cardizem)? @ -None Were any procedures done? @ -None Diagnosis/symptom? @ -Skin avulsion injury of right thumb Acute, or Chronic, or Acute on Chronic? @ -Acute Uncomplicated (without systemic symptoms) or Complicated (systemic symptoms)? @ -Uncomplicated Side effects of treatment? @ -None Exacerbation, Progression, or Severe Exacerbation] @ -Not applicable Poses a threat to life or bodily function? @ -No Return precautions reviewed in depth, the patient is instructed to return to the emergency department with any new, worsening, or concerning symptoms. Patient verbalized understanding. This case was discussed in detail with the attending ED physician, Dr. Downey. Presentation, findings, and treatment plan discussed in detail as well. Disposition Clinical Impression: Avulsion of skin of right thumb Disposition: HOME SELF-CARE Instructions (If sedation given, give patient instructions): Finger Laceration (ED) Additional Instructions: Return to the emergency department with any new, worsening, or concerning symptoms. Alternate with ibuprofen and Tylenol as needed for discomfort. Try to keep the area covered for the meantime to avoid accidentally reinjuring this, which would cause it to start bleeding again. Is patient prescribed a controlled substance at d/c from ED?: No Referrals: Federico Ulloa MD [Primary Care Provider] - 1-2 days
[2022-10-10 00:20] VITALS: BP 132/76; PULSE 78; TEMP 98.1
== END 2022-10-10 00:14 | disposition home or self-care (01) ==
LOC: EC 23:12
DX: S61.011A Laceration without foreign body of right thumb without damage to nail, initial encounter (principal); J45.909 Unspecified asthma, uncomplicated; Z23 Encounter for immunization; W27.4XXA Contact with kitchen utensil, initial encounter; Y92.000 Kitchen of unspecified non-institutional (private) residence as the place of occurrence of the external cause
CPT/HCPCS: 90471; 90715; 99282

== ENCOUNTER 2024-12-16 11:22 | Day surgery (SDC) | payer BC, OTHER ==
[~2024-12-16 11:22] MED LIST changes: -DEXAMETHASONE SOD PHOSPHATE 4 MG/ML 1 ML VIAL IV ONE; -HYDROmorphone 0.5 MG/0.5 ML SYRINGE IVP PRN; -LACTATED RINGERS 1,000 ML IV SCH; -MIDAZOLAM 2 MG/2 ML VIAL IV PRN; -ONDANSETRON 4 MG/2 ML VIAL IVP ONE
[2024-12-16] MEDS: IV FLUID CONTINUATION 1,000 ML IV ONE (12:30)
[2024-12-16 12:52] VITALS: TEMP 97.9
[2024-12-16] MEDS: LACTATED RINGERS 1,000 ML IV SCH (12:56)
[2024-12-16] MEDS ORDERED: PROPOFOL 10 MG/ML 20 ML VIAL IV ONE (13:09)
--- NOTE | 2024-12-16 13:23 | P.PCN ---
Date of Procedure: 12/16/24 Procedure(s) Performed: BRIEF HISTORY: Patient is a 39-year-old pleasant white female scheduled for an elective colonoscopy as a part of screening for colon cancer and family history of colon cancer. Her paternal grand father had colon cancer and father had colon polyps at a younger age and so did her twin sister. PROCEDURE PERFORMED: Colonoscopy. PREOPERATIVE DIAGNOSIS: Screening for colon cancer and family history of colon cancer. IV sedation per Anesthesia. PROCEDURE: After informed consent was obtained, the patient, was brought into the endoscopy unit. IV sedation was administered by Anesthesia under continuous monitoring. Digital rectal examination was normal. Initially the Olympus CF-160 flexible video colonoscope was then inserted in the rectum, gradually advanced into the cecum without any difficulty. Careful examination was performed as the scope was gradually being withdrawn. Ileocecal valve and the appendiceal orifice were visualized and appeared normal. Prep was excellent. Mucosa of the cecum, ascending colon, transverse colon, descending colon, sigmoid colon, and rectum appeared normal. Retroflexion was performed in the rectum and no lesions were seen. The patient tolerated the procedure well. IMPRESSION: Normal-appearing colon from rectum to cecum with no evidence of colorectal neoplasia. RECOMMENDATIONS: Findings of this examination were discussed with the patient as well as her family. She was advised to have repeat screening colonoscopy in 10 years.
[2024-12-16 13:46] VITALS: BP 120/84; PULSE 59; RESP 16
== END 2024-12-16 14:10 | disposition home or self-care (01) ==
LOC: ORWHC2ENDO 11:22
PROVIDERS: ATTEND Internal Medicine Gastroenterology
DX: Z12.11 Encounter for screening for malignant neoplasm of colon (principal); J45.909 Unspecified asthma, uncomplicated; Z80.0 Family history of malignant neoplasm of digestive organs
CPT/HCPCS: 81025; 45378; J2704